=== PATIENT | female | born 2000 | race Caucasian/White ===

== ENCOUNTER → 2020-10-15 | Outpatient (CLI) | payer BC ==
[2020-10-15 15:05] LABS: HCT 39.5 % (34.0-46.0); HGB 13.1 gm/dL (11.4-16.0); MCH 28.3 pg (25.0-35.0); MCHC 33.3 g/dL (31.0-37.0); Platelet Count 255 k/uL (150-450); RBC 4.65 m/uL (3.80-5.40); RDW 13.5 % (11.5-15.5); WBC 9.5 k/uL (4.0-11.0)
[2020-10-15 15:07] LABS: Appearance,Urine Clear (Clear); Bacteria,Urine Moderate /hpf; Bilirubin,Urine Negative (Negative); Blood,Urine Trace (Negative); Color,Urine Yellow; Glucose,Urine (UA) Negative (Negative); Ketones,Urine 1+ (Negative); Leukocyte Esterase,Urine Moderate (Negative); Mucus,Urine Rare /hpf; Nitrite,Urine Negative (Negative); PH, Urine 5.5 (5.0-8.0); Protein,Urine Negative (Negative); RBC,Urine 3 /hpf (0-5); Specific Gravity,Urine 1.017 (1.001-1.035); Squamous Epithelial Cell,Urine 1 /hpf (0-4); Urobilinogen,Urine <2.0 mg/dL (<2.0); WBC,Urine 4 /hpf (0-5)
[2020-10-15 20:13] LABS: % Iron Saturation 14.89 (12.00-45.00); African American GFR (CKD) 84.3 (60.0-200.0); Albumin 4.7 g/dL (3.80-4.90); Albumin/Globulin Ratio 2.04 (1.60-3.17); Anion Gap 7.9 mmol/L (4.00-12.00); BUN/Creat Ratio 13.64 Ratio (12.00-20.00); Calcium 9.5 mg/dL (8.7-10.3); Carbon Dioxide 24.1 mmol/L (21.6-31.8); Globulin 2.3 g/dL (1.6-3.3); Non-African American GFR(CKD) 72.7 (60.0-200.0); T4, Free (Free Thyroxine) 0.8 ng/dL (0.83-1.43); Total Bilirubin 0.3 mg/dL (0.2-1.2)
== END | disposition home or self-care (01) ==
LOC: LABWHC1 13:48
PROVIDERS: ATTEND Registered Nurse
DX: Z51.81 Encounter for therapeutic drug level monitoring (principal); F41.1 Generalized anxiety disorder; N39.0 Urinary tract infection, site not specified; R30.0 Dysuria; F31.81 Bipolar II disorder
CPT/HCPCS: 36415; 80053; 81001; 82306; 82607; 83540; 83550; 84439; 84443; 84481; 85027; 87086

== ENCOUNTER → 2020-10-25 | Outpatient (CLI) | payer BC ==
--- NOTE | 2020-10-25 08:21 | US ---
EXAMINATION TYPE: US kidneys/renal and bladder DATE OF EXAM: 10/25/2020 COMPARISON: NONE CLINICAL HISTORY: R31.29 Other Microscopic hematuria. back pain, especially left flank EXAM MEASUREMENTS: Right Kidney: 9.4 x 3.7 x 4.1 cm Left Kidney: 9.1 x 3.9 x 4.1 cm Right Kidney: No hydronephrosis or masses seen Left Kidney: No hydronephrosis or masses seen Bladder: patient was not told to rep, not fully distended There is no evidence for hydronephrosis at this point in time. No nephrolithiasis is seen. No renee s are identified. The urinary bladder is not greatly distended. Bilateral ureteral jets are not see n. IMPRESSION: No hydronephrosis or definitive bilateral renal calculi.
== END | disposition home or self-care (01) ==
LOC: RADUSWWP 07:33
PROVIDERS: ATTEND Internal Medicine
DX: R31.29 Other microscopic hematuria (principal); Z88.8 Allergy status to other drugs, medicaments and biological substances
CPT/HCPCS: 76770

== ENCOUNTER → 2020-10-29 | Outpatient (CLI) | payer BC | END | disposition home or self-care (01) | LOC: RADMRIMAIN 19:24 | PROVIDERS: ATTEND Internal Medicine | DX: Z53.9 Procedure and treatment not carried out, unspecified reason (principal) ==

== ENCOUNTER → 2020-10-30 | Outpatient (CLI) | payer BC ==
--- NOTE | 2020-10-31 07:08 | MR ---
EXAMINATION TYPE: MR brain wo/w con DATE OF EXAM: 10/30/2020 COMPARISON: NONE HISTORY: Migraines, Pain shooting thru body, very confused the last few weeks, memory loss TECHNIQUE: Multiplanar, multisequence images of the brain and brainstem is performed without and with IV contras t, utilizing 6 mL intravenous Gadavist . FINDINGS: Diffusion weighted images demonstrate no evidence of a recent infarct or other diffusion ab normality. Single nonspecific 3 mm T2 hyperintense focus inferior left frontal lobe axial image 14 li indigo of clinical significance. There is no worrisome extra-axial fluid collection. The ventricular s ystem and cisternal spaces are normal in size and appearance. The brain volume is age appropriate. Midline structures demonstrate normal morphology. The craniocervical junction appears within normal limits. Post contrast images demonstrate no abnormal enhancement. The dural venous sinuses appear pa tent. The visualized sinuses are clear and the globes are intact. No suspicious opacification mastoid air cells bilaterally. IMPRESSION: No suspicious findings are identified.
== END | disposition home or self-care (01) ==
LOC: RADMRIMAIN 15:52
PROVIDERS: ATTEND Internal Medicine
DX: G43.109 Migraine with aura, not intractable, without status migrainosus (principal); Z86.59 Personal history of other mental and behavioral disorders; Z88.8 Allergy status to other drugs, medicaments and biological substances
CPT/HCPCS: 70553; A9585